=== PATIENT | male | born 1960 | race Caucasian/White ===

== ENCOUNTER → 2018-02-02 | Outpatient (CLI) | payer BC ==
[~2018-02-02] MED LIST: GLIP10TA13 PO; LISI-170 PO; METF10002 PO
== END | disposition home or self-care (01) ==
LOC: CFH 08:30
PROVIDERS: ATTEND Nurse Practitioner Family
DX: Z12.2 Encounter for screening for malignant neoplasm of respiratory organs (principal); K76.0 Fatty (change of) liver, not elsewhere classified; J98.11 Atelectasis; Z72.0 Tobacco use
CPT/HCPCS: 76700; G0297

== ENCOUNTER → 2018-04-08 | Outpatient (CLI) | payer BC | END | disposition home or self-care (01) | LOC: CFH 12:43 | PROVIDERS: ATTEND Nurse Practitioner Family | DX: N62 Hypertrophy of breast (principal); N63.20 Unspecified lump in the left breast, unspecified quadrant; N64.4 Mastodynia; J44.9 Chronic obstructive pulmonary disease, unspecified; E11.9 Type 2 diabetes mellitus without complications; F17.200 Nicotine dependence, unspecified, uncomplicated; Z80.3 Family history of malignant neoplasm of breast | CPT/HCPCS: 77066 ==

== ENCOUNTER 2018-07-07 05:48 | Day surgery (SDC) | payer BC ==
[~2018-07-07] VITALS: Ht 177.8 cm; Wt 80.3 kg
[2018-07-07 06:53] VITALS: BP 146/88
[2018-07-07] MEDS ORDERED: SODIUM CHLORIDE 0.9% 1,000 ML IV SCH (07:00)
[2018-07-07 07:35] LABS: INTERNATIONAL NORMALIZED RATIO 0.93 (0.93-1.1); PROTHROMBIN TIME 9.9 Seconds (9.6-11.5)
[2018-07-07] MEDS ORDERED: FENTANYL PF 100 MCG/2ML ONE ×2 (07:56)
[2018-07-07] MEDS ORDERED: FLUMAZENIL 0.1 MG/1 ML, 5ML ONE (07:56)
[2018-07-07] MEDS ORDERED: MIDAZOLAM 1 MG/ML, 5ML ONE (07:56)
[2018-07-07] MEDS ORDERED: NALOXONE 1 MG/ML, 2ML ONE (07:57)
[2018-07-07] MEDS ORDERED: LIDOCAINE-MPF 1%, 5ML ONE (08:02)
[2018-07-07] MEDS ORDERED: OXYcodone 5 MG/5 ML ORAL.SOL UDC ONE (08:52)
[2018-07-07] MEDS ORDERED: OXYcodone 5 MG/5 ML ORAL.SOL UDC PO ONE (09:00)
[2018-07-07] MEDS ORDERED: KETOROLAC 30 MG/1 ML IVPush ONE (10:00)
[2018-07-07] MEDS ORDERED: morphine SULFATE 10 MG/ML, 1ML IVPush ONE (10:00)
== END 2018-07-07 10:50 | disposition home or self-care (01) ==
LOC: OUT 05:48
PROVIDERS: ATTEND Internal Medicine Critical Care Medicine
DX: K76.0 Fatty (change of) liver, not elsewhere classified (principal); I10 Essential (primary) hypertension; J44.9 Chronic obstructive pulmonary disease, unspecified; J42 Unspecified chronic bronchitis; Z79.899 Other long term (current) drug therapy; Z98.890 Other specified postprocedural states
CPT/HCPCS: 36415; 47000; 76942; 85610; 88307; 88313; 99156; 99157; J1885; J2250; J2270; J3010; J7030; J2310

== ENCOUNTER → 2019-01-30 | Outpatient (CLI) | payer BC | END | disposition home or self-care (01) | LOC: EDSTATUS 13:30 → CFH 14:29 → EDSTATUS 14:45 | PROVIDERS: ATTEND Nurse Practitioner Family | DX: M19.012 Primary osteoarthritis, left shoulder (principal); M19.011 Primary osteoarthritis, right shoulder; M75.92 Shoulder lesion, unspecified, left shoulder; M50.21 Other cervical disc displacement, high cervical region | CPT/HCPCS: 72141 ==

== ENCOUNTER → 2019-01-31 | Outpatient (CLI) | payer BC | END | disposition home or self-care (01) | LOC: CFH 14:44 → EDSTATUS 15:00 | PROVIDERS: ATTEND Nurse Practitioner Family | DX: M16.0 Bilateral primary osteoarthritis of hip (principal); M51.36 Other intervertebral disc degeneration, lumbar region; M76.891 Other specified enthesopathies of right lower limb, excluding foot; M25.852 Other specified joint disorders, left hip; M25.751 Osteophyte, right hip; Q65.89 Other specified congenital deformities of hip; K40.90 Unilateral inguinal hernia, without obstruction or gangrene, not specified as recurrent | CPT/HCPCS: 72195 ==

== ENCOUNTER 2019-02-01 14:36 | Outpatient (CLI) | payer BC | END 2019-02-01 23:59 | disposition home or self-care (01) | LOC: CFH 14:36 | PROVIDERS: ATTEND Nurse Practitioner Family | DX: S66.811A Strain of other specified muscles, fascia and tendons at wrist and hand level, right hand, initial encounter (principal); M47.814 Spondylosis without myelopathy or radiculopathy, thoracic region; M51.24 Other intervertebral disc displacement, thoracic region; M62.89 Other specified disorders of muscle; X58.XXXA Exposure to other specified factors, initial encounter; Y93.89 Activity, other specified; Y92.89 Other specified places as the place of occurrence of the external cause; Y99.8 Other external cause status | CPT/HCPCS: 72146 ==

== ENCOUNTER 2019-02-02 14:57 | Outpatient (CLI) | payer BC | END 2019-02-02 23:59 | disposition home or self-care (01) | LOC: CFH 14:57 | PROVIDERS: ATTEND Nurse Practitioner Family | DX: M71.21 Synovial cyst of popliteal space [Baker], right knee (principal); M25.532 Pain in left wrist; M19.032 Primary osteoarthritis, left wrist; M18.12 Unilateral primary osteoarthritis of first carpometacarpal joint, left hand; M19.031 Primary osteoarthritis, right wrist ==

== ENCOUNTER → 2019-02-03 | Outpatient (CLI) | payer BC | END | disposition home or self-care (01) | LOC: CFH 14:32 | PROVIDERS: ATTEND Nurse Practitioner Family | DX: M22.42 Chondromalacia patellae, left knee (principal); R60.0 Localized edema; M25.571 Pain in right ankle and joints of right foot ==